=== PATIENT | male | born 1970 | race Two or more races ===

== ENCOUNTER 2020-12-24 05:01 | Day surgery (SDC) | payer OTHER ==
[~2020-12-24 05:01] MED LIST: NEXIUM PO; ZESTRIL5 MG PO
== END 2020-12-24 11:00 | disposition home or self-care (01) ==
LOC: CIR.AMB 05:01
PROVIDERS: ATTEND Specialist
DX: K80.10 Calculus of gallbladder with chronic cholecystitis without obstruction (principal); Z20.822 Contact with and (suspected) exposure to COVID-19